=== PATIENT | female | born 1970 | race Caucasian/White ===

== ENCOUNTER 2019-04-18 20:14 | Emergency (ER) | payer MEDICARE ==
--- NOTE | 2019-04-18 20:40 | ERPHSYRPT ---
- History of Present Illness Time Seen by Provider: 04/18/19 20:40 Source: patient, family Exam Limitations: no limitations Physician History: 48 y/o white female with h/o anxiety presents with sudden onset of dizziness, nausea, vomiting and could not feel her bilat legs. sx improved on arrival. pt denies cp. however, she has had chronic back pain with deep inspiration. pt denies head trauma and denies loc. pt denies soa, denies abd pain. pt has never had these sx in the past. Timing/Duration: today Method of Injury: other (no injury) Quality: sharp (chronic) Back Pain Location: lumbar spine Severity of Pain-Max: mild Severity of Pain-Current: mild Associated Symptoms: dizziness, tingling in legs/feet Previous symptoms: same symptoms as today Allergies/Adverse Reactions: No Known Drug Allergies Allergy (Unverified 04/18/19 20:58) Home Medications: Albuterol Common Canister [Proventil Common Canister] 1 inh.kit PO BID [History] Buspirone HCl 5 mg [Buspar 5 mg] 5 mg PO BID 04/18/19 [History] Naproxen 500 mg [Naprosyn 500 MG] 500 mg PO BID 04/18/19 [History] Pantoprazole 40 mg [Protonix 40 mg IV] 40 mg PO DAILY 04/18/19 [History] - Review of Systems Constitutional: No Symptoms Eyes: No Symptoms Ears, Nose, & Throat: No Symptoms Respiratory: No Symptoms Cardiac: No Symptoms, No Chest Pain, No Palpitations, No Syncope Abdominal/Gastrointestinal: No Symptoms Genitourinary Symptoms: No Symptoms, No Dysuria, No Frequency Musculoskeletal: No Symptoms Skin: No Symptoms Neurological: Dizziness, Parasthesia, No Headache Psychological: Anxiety Endocrine: No Symptoms Hematologic/Lymphatic: No Symptoms Immunological/Allergic: No Symptoms All Other Systems: Reviewed and Negative - Past Medical History Pertinent Past Medical History: No Neurological History: No Pertinent History ENT History: No Pertinent History Cardiac History: No Pertinent History Respiratory History: No Pertinent History Endocrine Medical History: No Pertinent History Musculoskeletal History: No Pertinent History GI Medical History: No Pertinent History History: No Pertinent History Psycho-Social History: No Pertinent History Female Reproductive Disorders: No Pertinent History - Past Surgical History Neuro Surgical History: No Pertinent History Cardiac: No Pertinent History Respiratory: No Pertinent History Gastrointestinal: No Pertinent History Genitourinary: No Pertinent History Musculoskeletal: No Pertinent History Female Surgical History: No Pertinent History - Nursing Vital Signs Nursing Vital Signs: Initial Vital Signs Temperature 97.4 F 04/18/19 20:40 Pulse Rate 76 04/18/19 20:40 Respiratory Rate 18 04/18/19 20:40 Blood Pressure 123/84 04/18/19 20:40 O2 Sat by Pulse Oximetry 97 04/18/19 20:40 Pain Scale Pain Intensity [Back] 2 Pain Intensity 2 - Physical Exam General Appearance: mild distress, alert, anxiety Eye Exam: PERRL/EOMI, eyes nml inspection Ears, Nose, Throat Exam: normal ENT inspection, moist mucous membranes Neck Exam: normal inspection, non-tender, supple, full range of motion Respiratory Exam: normal breath sounds, lungs clear, airway intact, No chest tenderness, No respiratory distress Cardiovascular Exam: regular rate/rhythm, normal heart sounds, normal peripheral pulses Gastrointestinal Exam: soft, normal bowel sounds, No tenderness Pelvic Exam: not done Rectal Exam: not done Back Exam: normal inspection, normal range of motion, No CVA tenderness, No vertebral tenderness Extremity Exam: normal inspection, normal range of motion, pelvis stable Neurologic Exam: alert, oriented x 3, cooperative, embedded software architect II-XII nml as tested Skin Exam: normal color, warm, dry Lymphatic Exam: No adenopathy SpO2 Interpretation: normal O2 Delivery: Room Air - Course Nursing assessment & vital signs reviewed: Yes EKG Interpreted by Me: RATE ([id number]), Sinus Rhythm, NORMAL AXIS, NORMAL INTERVALS, NORMAL QRS, Other (comparison ekg dated 12/19/17 no changes) Ordered Tests: Active Orders 24 hr Category Date Time Status Clean Catch Urine Specimen STAT Care 04/18/19 21:29 Active EKG-ER Only STAT Care 04/18/19 21:29 Active IV Insertion STAT Care 04/18/19 21:29 Active HEAD WITHOUT CONTRAST [CT] Stat Exams 04/18/19 21:30 Taken CBC W DIFF Stat Lab 04/18/19 21:29 Completed CMP Stat Lab 04/18/19 21:29 Completed CULTURE,URINE Stat Lab 04/18/19 21:35 Received UA W/RFX UR CULTURE Stat Lab 04/18/19 21:35 Completed Urine Triage Profile Stat Lab 04/18/19 21:35 Completed Medication Summary Discontinued Medications Generic Name Dose Route Start Last Admin Trade Name Joseph PRN Reason Stop Dose Admin Sodium Chloride 1,000 mls @ 999 mls/hr 04/18/19 21:29 04/18/19 21:57 Sodium Chloride 0.9% 1000 Ml IV 04/18/19 22:29 999 mls/hr .Q1H1M STA Administration Sodium Chloride Confirm 04/18/19 21:50 Sodium Chloride 0.9% 1000 Ml Administered 04/18/19 21:51 Dose 1,000 mls @ ud .ROUTE .STK-MED ONE Ondansetron HCl 4 mg 04/18/19 21:30 04/18/19 21:57 Zofran 4 Mg/2 Ml Vial IV 04/18/19 21:31 4 mg STAT ONE Administration Ondansetron HCl Confirm 04/18/19 21:50 Zofran 4 Mg/2 Ml Vial Administered 04/18/19 21:51 Dose 4 mg .ROUTE .STK-MED ONE Lab/Rad Data: Laboratory Result Diagrams 04/18/19 21:29 04/18/19 21:29 Laboratory Results 04/18/19 04/18/19 04/18/19 Range/Units 21:35 21:35 21:29 WBC (4.0-10.5) K/mm3 RBC (4.1-5.4) M/mm3 Hgb (12.0-16.0) gm/dl Hct (35-47) % MCV (78-100) fl MCH (26-32) pg MCHC (32-36) g/dl RDW (11.5-14.0) % Plt Count (150-450) K/mm3 MPV (6-9.5) fl Gran % (36.0-66.0) % Eos # (Auto) (0-0.5) Absolute Lymphs (auto) (1.0-4.6) Absolute Monos (auto) (0.0-1.3) Lymphocytes % (24.0-44.0) % Monocytes % (0.0-12.0) % Eosinophils % (0.00-5.0) % Basophils % (0.0-0.4) % Absolute Granulocytes (1.4-6.9) Basophils # (0-0.4) Sodium 142 (137-145) mmol/L Potassium 4.1 (3.5-5.1) mmol/L Chloride 104 (98-107) mmol/L Carbon Dioxide 27 (22-30) mmol/L Anion Gap 14.0 (5-15) MEQ/L BUN 17 (7-17) mg/dL Creatinine 0.60 (0.52-1.04) mg/dL Estimated GFR > 60.0 ML/MIN Glucose 113 H (74-106) mg/dL Calcium 9.2 (8.4-10.2) mg/dL Total Bilirubin 0.40 (0.2-1.3) mg/dL AST 26 (14-36) U/L ALT 18 (0-35) U/L Alkaline Phosphatase 63 (38-126) U/L Serum Total Protein 8.7 H (6.3-8.2) g/dL Albumin 4.4 (3.5-5.0) g/dL Urine Color YELLOW (YELLOW) Urine Appearance SLIGHTLY CLOUDY (CLEAR) Urine pH 5.0 (5-6) Ur Specific Randolph 1.031 (1.005-1.025) Urine Protein 30 (Negative) Urine Ketones NEGATIVE (NEGATIVE) Urine Blood NEGATIVE (0-5) Haryd/ul Urine Nitrite NEGATIVE (NEGATIVE) Urine Bilirubin NEGATIVE (NEGATIVE) Urine Urobilinogen 4 (0-1) mg/dL Ur Leukocyte Esterase MODERATE (NEGATIVE) Urine WBC (Auto) 3-5 (0-5) /HPF Urine RBC (Auto) 3-5 (0-2) /HPF U Epithel Cells (Auto) RARE (FEW) /HPF Urine Bacteria (Auto) NONE (NEGATIVE) /HPF Urine Mucus (Auto) SLIGHT (NEGATIVE) /HPF Urine Culture Reflexed YES (NO) Urine Glucose NEGATIVE (NEGATIVE) mg/dL Urine Opiates Level NEGATIVE (NEGATIVE) Ur Methadone NEGATIVE (NEGATIVE) Urine Barbiturates NEGATIVE (NEGATIVE) Ur Phencyclidine (PCP) NEGATIVE (NEGATIVE) Urine Amphetamine NEGATIVE (NEGATIVE) U Benzodiazepine Level NEGATIVE (NEGATIVE) Urine Cocaine NEGATIVE (NEGATIVE) Urine Marijuana (THC) NEGATIVE (NEGATIVE) 04/18/19 Range/Units 21:29 WBC 13.8 H (4.0-10.5) K/mm3 RBC 4.91 (4.1-5.4) M/mm3 Hgb 12.1 (12.0-16.0) gm/dl Hct 39.5 (35-47) % MCV 80.4 (78-100) fl MCH 24.6 L (26-32) pg MCHC 30.6 L (32-36) g/dl RDW 17.6 H (11.5-14.0) % Plt Count 430 (150-450) K/mm3 MPV 11.0 H (6-9.5) fl Gran % 77.5 H (36.0-66.0) % Eos # (Auto) 0.30 (0-0.5) Absolute Lymphs (auto) 2.14 (1.0-4.6) Absolute Monos (auto) 0.62 (0.0-1.3) Lymphocytes % 15.5 L (24.0-44.0) % Monocytes % 4.5 (0.0-12.0) % Eosinophils % 2.2 (0.00-5.0) % Basophils % 0.3 (0.0-0.4) % Absolute Granulocytes 10.72 H (1.4-6.9) Basophils # 0.04 (0-0.4) Sodium (137-145) mmol/L Potassium (3.5-5.1) mmol/L Chloride (98-107) mmol/L Carbon Dioxide (22-30) mmol/L Anion Gap (5-15) MEQ/L BUN (7-17) mg/dL Creatinine (0.52-1.04) mg/dL Estimated GFR ML/MIN Glucose (74-106) mg/dL Calcium (8.4-10.2) mg/dL Total Bilirubin (0.2-1.3) mg/dL AST (14-36) U/L ALT (0-35) U/L Alkaline Phosphatase (38-126) U/L Serum Total Protein (6.3-8.2) g/dL Albumin (3.5-5.0) g/dL Urine Color (YELLOW) Urine Appearance (CLEAR) Urine pH (5-6) Ur Specific Randolph (1.005-1.025) Urine Protein (Negative) Urine Ketones (NEGATIVE) Urine Blood (0-5) Hardy/ul Urine Nitrite (NEGATIVE) Urine Bilirubin (NEGATIVE) Urine Urobilinogen (0-1) mg/dL Ur Leukocyte Esterase (NEGATIVE) Urine WBC (Auto) (0-5) /HPF Urine RBC (Auto) (0-2) /HPF U Epithel Cells (Auto) (FEW) /HPF Urine Bacteria (Auto) (NEGATIVE) /HPF Urine Mucus (Auto) (NEGATIVE) /HPF Urine Culture Reflexed (NO) Urine Glucose (NEGATIVE) mg/dL Urine Opiates Level (NEGATIVE) Ur Methadone (NEGATIVE) Urine Barbiturates (NEGATIVE) Ur Phencyclidine (PCP) (NEGATIVE) Urine Amphetamine (NEGATIVE) U Benzodiazepine Level (NEGATIVE) Urine Cocaine (NEGATIVE) Urine Marijuana (THC) (NEGATIVE) - Progress Progress: improved, pain not gone completely, re-examined Progress Note: 04/18/19 22:57 ct head- no acute process Counseled pt/family regarding: lab results, diagnosis, need for follow-up, rad results - Departure Departure Disposition: Home Clinical Impression: UTI (urinary tract infection), Dizziness Condition: Stable Critical Care Time: No Referrals: SOFI HARRIS MD [Primary Care Provider] - Additional Instructions: drink plenty of fluids. follow up with primary doctor for further management Prescriptions: Ciprofloxacin [Cipro 500 MG] 500 mg PO BID #14 tablet
[2019-04-18 20:58] VITALS: O2SAT 97
[2019-04-18] MEDS ORDERED: Sodium Chloride 0.9% 1000 ML 1,000 ML IV STA (21:29)
[2019-04-18] MEDS ORDERED: Zofran 4 MG/2 ML VIAL IV ONE (21:30)
[2019-04-18 21:45] LABS: Appearance SLIGHTLY CLOUDY (CLEAR); Bilirubin NEGATIVE (NEGATIVE); Blood NEGATIVE Ery/ul (0-5); Epithelial Cells RARE /HPF (FEW); Glucose NEGATIVE (NEGATIVE); Ketones NEGATIVE (NEGATIVE); Leukocyte Esterase MODERATE (NEGATIVE); Mucus SLIGHT /HPF (NEGATIVE); Nitrite NEGATIVE (NEGATIVE); Protein,Urine Dip 30 (Negative); Specific Gravity 1.031 (1.005-1.025); Urobilinogen 4 mg/dL (0-1)
[2019-04-18] MEDS ORDERED: Sodium Chloride 0.9% 1000 ML 1,000 ML ONE (21:50)
[2019-04-18] MEDS ORDERED: Zofran 4 MG/2 ML VIAL ONE (21:50)
[2019-04-18 22:01] LABS: Amphetamine,Urine NEGATIVE (NEGATIVE); Barbiturate,Urine NEGATIVE (NEGATIVE); Benzodiazepine,Urine NEGATIVE (NEGATIVE); Cocaine,Urine NEGATIVE (NEGATIVE); Methadone,Urine NEGATIVE (NEGATIVE); Opiate,Urine NEGATIVE (NEGATIVE); PCP,Urine NEGATIVE (NEGATIVE); THC,Urine NEGATIVE (NEGATIVE)
[2019-04-18 22:08] LABS: Absolute Neutrophil Ct (ANC) 10.72 (1.4-6.9); BASOPHIL % 0.3 % (0.0-0.4); Basophil (Absolute #) 0.04 (0-0.4); Eosinophil % 2.2 % (0.00-5.0); Hematocrit 39.5 % (35-47); Hemoglobin 12.1 gm/dl (12.0-16.0); Lymphocyte (Absolute #) 2.14 (1.0-4.6); Lymphocytes % 15.5 % (24.0-44.0); Mean Cell Volume 80.4 fl (78-100); Mean Corpuscular Hemoglobin 24.6 pg (26-32); Mean Corpuscular Hgb Concent. 30.6 g/dl (32-36); Monocyte (Absolute #) 0.62 (0.0-1.3); Monocytes % 4.5 % (0.0-12.0); Neutrophil % 77.5 % (36.0-66.0); Platelet Count 430 K/mm3 (150-450); Red Blood Count 4.91 M/mm3 (4.1-5.4); Red Cell Distribution Width 17.6 % (11.5-14.0); White Blood Count 13.8 K/mm3 (4.0-10.5)
[2019-04-18 22:13] LABS: ALBUMIN 4.4 g/dL (3.5-5.0); ALKALINE PHOSPHATASE 63 U/L (38-126); BLOOD UREA NITROGEN 17 mg/dL (7-17); CHLORIDE 104 mmol/L (98-107); Calcium 9.2 mg/dL (8.4-10.2); Carbon Dioxide 27 mmol/L (22-30); Glucose 113 mg/dL (74-106); Potassium 4.1 mmol/L (3.5-5.1); SGOT/AST 26 U/L (14-36); SGPT/ALT 18 U/L (0-35); SODIUM 142 mmol/L (137-145); Total Protein 8.7 g/dL (6.3-8.2)
[2019-04-18] MEDS ORDERED: ROCEPHIN 1 Gm-D5w 50 ml Bag** 1 G/50 ML IVPB IV STA (23:05)
[2019-04-18] MEDS ORDERED: ROCEPHIN 1 Gm-D5w 50 ml Bag** 1 G/50 ML IVPB IV ONE (23:08)
[2019-04-19 00:26] VITALS: BP 127/84; PULSE 77
--- NOTE | 2019-04-19 09:00 | XRAY ---
Indication: Headache, nausea, and dizziness. Multiple contiguous axial images obtained through the head without contrast. Comparison: None Ventriculosulcal pattern appears symmetric. Tiny remote lacunar infarct adjacent to the left caudate head. There is a 7-8mm calcified meningioma near the left vertex. No acute intracranial hemorrhage, abnormal extra-axial fluid collection, or mass effect. Fourth ventricle is midline without hydrocephalus. Quispe-white matter differentiation preserved. Bony calvarium intact. Visualized paranasal sinuses and mastoid air cells are clear. Impression: 1. Tiny remote lacunar infarct adjacent to the left caudate head and small left vertex calcified meningioma. 2. No acute intracranial abnormalities. Comment: Preliminary interpretation was made by [facility] with does not report incidental lacunar infarct and calcified meningioma. CT DI 59.11
== END 2019-04-19 00:26 | disposition home or self-care (01) ==
LOC: ED 20:14
DX: N39.0 Urinary tract infection, site not specified (principal); R42 Dizziness and giddiness; Z79.899 Other long term (current) drug therapy
CPT/HCPCS: 36415; 70450; 80053; 80307; 81001; 85025; 87086; 93005; 96360; 96365; 96374; 96375; 99284; J0696; J2405